=== PATIENT | male | born 2000 | race African-American/Black ===

== ENCOUNTER 2020-10-30 10:21 | Emergency (ER) | payer OTHER, SELFPAY ==
[2020-10-30 10:25] VITALS: BP 130/73; PULSE 62; RESP 18; TEMP 37.1; O2SAT 99
--- NOTE | 2020-10-30 10:57 | ED.DENTAL ---
HPI - Dental/Oral General Chief complaint: Dental/Oral Stated complaint: Dental/Oral Time Seen by Provider: 10/30/20 10:49 Source: patient and RN notes reviewed Mode of arrival: ambulatory Limitations: no limitations History of Present Illness HPI Narrative: Patient presents today complaining of left upper dental pain. States the tooth broke off a few years ago and reports pain has been present in the tooth area for the past 4 years, but the area has been swollen and more painful over the past 3 days. Denies fever, shortness of breath, difficulty swallowing. Currently rates his pain 8/10 describes the pain as throbbing. He has been taking Advil without relief. No recent antibiotic use. MD Complaint: tooth pain Related Data Allergies Allergy/AdvReac Type Severity Reaction Status Date / Time No Known Allergies Allergy Mild Verified 10/30/20 10:46 Review of Systems Review of Systems: Narrative: CONSTITUTIONAL: Denies body aches, fever, chills, or sweats. EYES: Denies visual changes, redness, or discharge. ENT: Denies rhinorrhea, congestion, sore throat, or otalgia.+ Tooth pain and facial swelling CARDIOVASCULAR: Denies chest pain, palpitations, or edema. RESPIRATORY: Denies cough or dyspnea. GASTROINTESTINAL: Denies abdominal pain, nausea, vomiting, or diarrhea. GENITOURINARY: Denies dysuria or hematuria. SKIN: Denies rash, itching, or wounds. MUSCULOSKELETAL: Denies back pain, joint pain, or myalgia. NEUROLOGIC: Denies headache, numbness, tingling, or weakness. PSYCH: Denies depression or anxiety. PMFSH Comments At time of signature, I have reviewed and agree with nursing past medical, surgical, social and family history unless otherwise noted. Please see nursing chart for further information. There is no relevant family history pertinent to the presenting complaint Exam Narrative: Exam Narrative: GENERAL: Well-appearing, well-nourished. Patient is tearful. HEAD: Normocephalic, atraumatic. EYES: EOMI. No redness or drainage. Conjunctivae normal. ENT: Mucous membranes pink and moist. Nares clear. No rhinorrhea. Throat normal. Uvula midline. #14 is broken off the gumline and brown in color. The surrounding gingiva is slightly erythematous. Left upper cheek is slightly edematous as well. Gumline is tender to palpation. No obvious periapical abscess. NECK: Normal AROM. Supple. No lymphadenopathy. CHEST: No respiratory distress. Clear to auscultation. HEART: Regular rate and rhythm. No murmur appreciated. Normal peripheral pulses. EXTREMITIES: Normal range of motion. No edema. SKIN: Warm, dry, no rash. Capillary refill normal. Normal skin turgor. NEURO: No focal deficits. Alert and oriented x3. Gait steady. PSYCH: Normal affect. No signs of depression or anxiety. Course Vital Signs Vital signs: Vital Signs Temperature 98.7 F 10/30/20 10:25 Pulse Rate 62 10/30/20 10:25 Respiratory Rate 18 10/30/20 10:25 Blood Pressure 130/73 10/30/20 10:25 Pulse Oximetry 99 10/30/20 10:25 Temperature 98.7 F 10/30/20 10:25 Pulse Rate 62 10/30/20 10:25 Respiratory Rate 18 10/30/20 10:25 Blood Pressure 130/73 10/30/20 10:25 Pulse Oximetry 99 10/30/20 10:25 Reviewed. Pt has been instructed to follow up with his PCP regarding his elevated blood pressure today. MDM - Dental/Oral Differential Diagnosis Differential diagnosis: Likely gingival abscess, dental caries, toothache, dental abscess and fracture of tooth Critical Care Time Critical Care Time Critical Care Time: No Discharge Plan Discharge Clinical Impression: Dental caries Fracture of tooth Qualifiers: Encounter type: initial encounter Fracture type: closed Qualified Code(s): S02.5XXA - Fracture of tooth (traumatic), initial encounter for closed fracture Patient Disposition: Home, Self-Care Condition: Stable Instructions: Antibiotic Form, Dental Abscess (ED) Additional Instructions: Please take the amoxicillin
== END 2020-10-30 11:10 | disposition home or self-care (01) ==
PROVIDERS: Emergency Provider Nurse Practitioner
DX: K02.9 Dental caries, unspecified (principal); S02.5XXA Fracture of tooth (traumatic), initial encounter for closed fracture; X58.XXXA Exposure to other specified factors, initial encounter
CPT/HCPCS: 99203; G0463

== ENCOUNTER 2024-09-18 17:03 | Emergency (ER) | payer OTHER, SELFPAY ==
--- NOTE | ~2024-09-18 | XR_ITS ---
XR pelvis 1-2V 09/18/2024 17:56 Indication: Status post fall on ice. Procedure: AP pelvis Comparison: No prior studies for comparison. Findings: Pelvic rings are intact. There are multiple lag screws in the pelvis. No acute fracture or traumatic malalignment. Impression: 1: No acute bone or joint abnormality. Reviewed, dictated and finalized at location A. ADMINISTRATOR Impression: 1: No acute bone or joint abnormality.
[2024-09-18 17:10] VITALS: BP 118/83; PULSE 98; RESP 20; TEMP 37.3; O2SAT 100
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
== END 2024-09-18 18:27 | disposition home or self-care (01) ==
PROVIDERS: Emergency Provider Registered Nurse
DX: M25.551 Pain in right hip (principal); W00.0XXA Fall on same level due to ice and snow, initial encounter; F12.90 Cannabis use, unspecified, uncomplicated
CPT/HCPCS: 72170; 99213; G0463

== ENCOUNTER 2024-12-28 18:11 | Emergency (ER) | payer OTHER, SELFPAY ==
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
--- OUTSIDE RECORDS SUMMARY | 2024-12-28 18:13 | XMS_ITS | Encounter Summary ---
Author Organization [facility] Address [address] [place] [address] Care Team Providers Care Health Practice Manager Name Role Phone Pily Goodson MD Primary Care Provider [phone] Encounter Details Date Type Department Care Team (Late st Contact Info) Description 01/20/[address] [address] BrothersMichaela RN Social History Tobacco Use Types Packs/Day Years Used Date Smoking Tobacco: Never Alcohol Use Standard Drinks/Week Comments Not Asked 0 (1 standard drink = 0.6 oz pur e alcohol) Sex and Gender Information Value Date Recorded Sex Assigned at Not on file Legal Sex Male 8:25 PM CDT Gender Identity Not on file Sexual Orientation Not on file documented as of this encounter Functional Status * Is person deaf or have serious hearing difficulty? Answer Date of Assessment Author No 01/17/2015 7:24 PM CDT Shannon Tran RN * Is person blind or have serious difficulty seeing? Answer Date of Assessment Author No 01/17/2015 7:24 PM CDT Shannon Tran RN * Does person have serious difficulty walking/climbing stairs? Answer Date of Assessment Author No 01/17/2015 7:24 PM CDT Shannon Tran RN * Does person have difficulty dressing/bathing? Answer Date of Assessment Author No 01/17/2015 7:24 PM CDT Shannon Tran RN * Does person have difficulty doing errands alone? Answer Date of Assessment Author No 01/17/2015 7:24 PM CDT Shannon Tran RN documented as of this encounter Mental Status * Does person have difficulty concentrating/remembering/making decisions? Answer Entry Date Author No 01/17/2015 7:24 PM CDT Shannon Tran RN documented in this encounter Plan of Treatment Not on file documented as of this encounter Visit Diagnoses Not on filedocumented in this encounter Care Teams Health Practice Manager Relationship Specialty Start Date End Date Pily Goodson MD [address] [place], [place] [phone] PCP - General Pediatrics 01/16/15 documented as of this encounter
--- OUTSIDE RECORDS SUMMARY | 2024-12-28 18:13 | XMS_ITS | Clinical Summary ---
Author Organization [facility] Address [address] [place] [address] Phone Care Team Providers Care Sheet Metal Duct Installer Helper Name Role Phone Provider, None Primary Care Provider Unavailabl e Allergies No known active allergies Medications No known medications Social History Tobacco Use Types Packs/Day Years Used Date Smoking Tobacco: Never Smokeless Tobacco: Never Tobacco Cessation:Counseling Given: Not Answered Alcohol Use Standard Drinks/Week Comments Never 0 (1 standard drink = 0.6 oz pur e alcohol) Sex and Gender Information Value Date Recorded Sex Assigned at Male 04/08/2024 1:52 PM CDT 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 Gender Identity Male 04/08/2024 1:52 PM CDT Sexual Orientation Not on file Last Filed Vital Signs Vital Sign Reading Time Taken Comments Blood Pressure 111/68 04/29/2024 3:00 PM CDT Pulse 68 04/29/2024 3:00 PM CDT Temperature 37 C (98.6 F) 04/29/2024 1:06 PM CDT Respiratory Rate 16 04/29/2024 3:00 PM CDT Oxygen Saturation 94% 04/29/2024 3:00 PM CDT Inhaled Oxygen Concentration - - Weight 82.1 kg (181 lb) 04/29/2024 1:06 PM CDT Height 182.9 cm (6') 04/29/2024 1:06 PM CDT Body Mass Index 24.55 04/29/2024 1:06 PM CDT Plan of Treatment Health Maintenance Due Date Last Done Comments Hepatitis C Virus (HCV) Screening 1999 Influenza Immunization (#1) 2024 SARS-COV-2 Immunization ( season) 2024 Respiratory Syncytial Virus (RSV) Immunization (Adult) (1 - 1-dose 75+ series) 2074 Hepatitis B Immunization Completed 001, 07/02/2000, 1999 Pneumococcal Immunization Combined Aged Out 09/26/2000, 07/02/2000 No longer eligibl e based on patient's age to complete this topic Meningococcal Immunization (ACWY) Aged Out 03/17/2011 No longer eligible based on patient's age to complete this topic Human Papillomavirus (HPV) Immunization Completed 04/15/2013, 06/18/2012, 03/29/2012 DTaP/Tdap/Td Immunization Discontinued 2023, 11/05/2009, 10/27/2003, Additional history exists TdaP Immunization Completed 01/22/2024, 11/05/2009 Rotavirus Immunization Aged Out No lo nger eligible based on patient's age to complete this topic Insurance MEDICAID [facility] Care Teams Sheet Metal Duct Installer Helper Relationship Specialty Start Date End Date Provider, None [place] PCP - General 04/29/24
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
--- OUTSIDE RECORDS SUMMARY | 2024-12-28 18:13 | XMS_ITS | Clinical Summary ---
Author Organization [address] lt Address [address] [place] [address] Care Team Providers Care Pizza Delivery Name Role Phone No, Physician Primary Care Provider [phone] Allergies No known active allergies Medications acetaminophen [...] near future. 01/30: [place] be NPO at [place] in anticipation of OMFS intervention for loose [...] (02/01/2024 6:19 AM CDT): Lives alone in [place], [place]. 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 01/23 Tx from Unit. 01/25: pending placement to IRF 01/29: insurance authorization for TRISL started Patient is medically stable for discharge, SW/KATY updated. Discharge pending insurance authorization 01/30: tentative plan for discharge 01/31 to trisl after OMFS 01/31: pending insurance authorization for TRISL Health Insurance Coverage: AmBetter Prescription Coverage: yes Pharmacy: [facility] #[id number] - [place] - [address] [place] [address] [place] [address] Anxiety/Agitation in the setting of major trauma [...] -- If you have 2 shaking spells [id number]-[id number] without returning to baseline in between, a [...] or concerns about wounds; patient can call [phone] or [phone] to schedule an appointment Liver laceration 01/22/2024 [...] leak - urology consult, okay to DC Oprter on 01/23 - WBAT BLE, PT/OT - sutures/char will be removed 3 weeks after surgical date 01/24: Ortho Trauma signed off, referrals sent per CM to [facility] Immunizations Immunization Administration Dates Next Due Tdap 01/22/2024 Surgical History Surgery Date Site/Laterality Comments OTHER SURGICAL HISTORY No pertinent surgical history Medical History Medical History Date Comments No pertinent past medical history Social History Tobacco Use Types Packs/Day Years [...] on file 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 Gender Identity Not on file Sexual Orientation Not on file Obstetrics History Last Filed Vital Signs Vital Sign Reading [...] 03/24/2024 12:59 PM CDT Plan of Treatment Health Maintenance Due Date Last Done Comments Depression Screening 1999 Hepatitis C Screening 1999 Regular Well Visit/Exam 18-64 2017 Influenza Vaccine (Season Ended) 2025 DTaP/Tdap/Td Vaccine (8 - Td or Tdap) 01/21/2034 01/22/2024, 11/05/2009, 10/27/2003, Additional history exists Hepatitis B Screening Completed 09/26/2000 , 07/02/2000, 1999 Pneumococcal vaccine <65 Completed 09/26/2000, 06/05 Varicella Vaccines Completed 11/05/2009, 07/02/2000 HPV Vaccines Completed 04/15/2013, 06/03, 03/29/2012 Medical Devices Implanted Type Area Supply Coordinator Device Identifier Shelf Expiration Date Model / Serial / Lot Synthes 13mm Washer Orthopedic Stainless Steel Nonsterile 6.5/7/7.3mm 219.99 - [id number] Implanted:Qty: 2 on 01/22/2024 by Alvaro Clement MD at [facility] Synthes I 219.99 / / Synthes 7.3mm 8.2mm 2.9mm 80mm Cannulated Self Tap Self Drill 209.680 - [id number] Implanted:Qty: 1 on 01/22/2024 by Alvaro Clement MD at [facility] Synthes I 209.680 / / Synthes 7.3mm 8.2mm 2.9mm 130mm Cannulated Self Tap Self Drill 209.730 - [id number] Implanted:Qty: 1 on 01/22/2024 by Alvaro Clement MD at [facility] Synthes I 209.730 / / Synthes 7.3mm 8.2mm 2.9mm 135mm 32mm Cannulated Self Tap Self Drill 209.935 - [id number] Implanted:Qty: 1 on 01/22/2024 by Alvaro Clement MD at [facility] Synthes I 209.935 / / Explanted Type Area Supply Coordinator Device Identifier Shelf Expiration Date Model / Serial / Lot Synthes 7.3mm 8.2mm 2.9mm 130mm 32mm Cannulated Self Tap Self Drill 209.930 - [id number] Explanted:Qty: 1 on 01/22/2024 at [facility] Synthes I 209.930 / / [place] [facility] [place] [facility] [place] Advance Directives For more information, please contact: [phone] * Full Code (Latest Code Status on File) Date Activated Date Inactivated Comments 01/22/2024 1:18 AM 02/01/2024 8:55 PM Care Teams Pizza Delivery Relationship Specialty Start Date End Date No, Physician PCP - General 12/16/20
--- OUTSIDE RECORDS SUMMARY | 2024-12-28 18:16 | XMS_ITS | CONTINUITY OF CARE DOCUMENT ---
Author Name iesha julian Address Unknown Organization [facility] Address [address] [place] [address] Phone [phone] Care Team Providers Care Global Marketing Operations Manager Name Role Phone Kel Moreno MD Unavailable DIANA JENKINS MD Unavailable [phone] INSURANCE PROVIDERS Payer name Policy type / Coverage type Edi red libertarian [place] HEALTHCARE AND FAMILY SERVICES Medicaid 1 [id number]
[2024-12-28 18:23] VITALS: BP 141/70; PULSE 70; RESP 16; TEMP 36.6; O2SAT 96
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
[2024-12-28 19:39] LABS: EDSTREPNEGPOS1 Negative (Negative)
[2024-12-28 19:43] LABS: EDCOVIDSCREEN Negative (Negative); EDINFLUASCREEN Negative (Negative); EDINFLUBSCREEN Negative (Negative)
== END 2024-12-28 20:16 | disposition left against medical advice (07) ==
PROVIDERS: Emergency Provider Nurse Practitioner
DX: R10.9 Unspecified abdominal pain (principal); R10.13 Epigastric pain; R19.7 Diarrhea, unspecified; Z20.822 Contact with and (suspected) exposure to COVID-19; F12.90 Cannabis use, unspecified, uncomplicated
CPT/HCPCS: 87081; 87426; 87804; 87880; 99213; G0463

== ENCOUNTER 2025-01-08 16:38 | Emergency (ER) | payer OTHER, SELFPAY ==
--- OUTSIDE RECORDS SUMMARY | 2025-01-08 16:40 | XMS_ITS | Clinical Summary ---
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
--- OUTSIDE RECORDS SUMMARY | 2025-01-08 16:40 | XMS_ITS | Clinical Summary ---
Author Organization [facility] Address [address] [place] [address] Care Team Providers Care Central Sterile Technician Name Role Phone Pily Goodson MD Primary Care Provider Source Comments [facility],non-owned Affiliates and Associated Physician Practices is amultiple site organization consisting of ambulatory clinics and hospital sitesin [place], [place], [place] and [place]. This disclosure is being madepursuant to the Care Everywhere program and may not contain all information available regarding this patient. Last updated 18.[facility] Allergies No known active allergies Medications * [...] age to complete this topic Care Teams Central Sterile Technician Relationship Specialty Start Date End Date Pily Goodson MD [address] [place], [place] [id number] PCP - General Pediatrics 01/16/15
--- OUTSIDE RECORDS SUMMARY | 2025-01-08 16:40 | XMS_ITS | Encounter Summary ---
Author Organization [facility] Address [address] [place] [address] Care Team Providers Care Twisting Department End Finder Name Role Phone Pily Goodson MD Primary Care Provider [phone] Encounter Details Date Type Department Care Team (Late st Contact Info) Description 01/20/[address] [address] BrothersMichaela RN Social History Tobacco Use Types [...] on filedocumented in this encounter Care Teams Twisting Department End Finder Relationship Specialty Start Date End Date Pily Goodson MD [address] [place], [place] [id number] PCP - General Pediatrics 01/16/15 documented as of this encounter
--- OUTSIDE RECORDS SUMMARY | 2025-01-08 16:40 | XMS_ITS | Referral Summary ---
Author Organization [address] l[address] Address [address] [place] [address] Care Team Providers Care Colorectal Surgeon Name Role Phone No, Physician Primary Care Provider [phone] Allergies No known active allergies Medications acetaminophen [...] near future. 01/30: will be NPO at [place] in anticipation of OMFS intervention for loose [...] (02/01/2024 6:19 AM CDT): Lives alone in [place], [place]. 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 01/23 Tx from Unit. 01/25: pending placement to IRF 01/29: insurance authorization for TRISL started Patient is medically stable for discharge, SW/KATY updated. Discharge pending insurance authorization 01/30: tentative plan for discharge 01/31 to trisl after OMFS 01/31: pending insurance authorization for TRISL Health Insurance Coverage: AmBetter Prescription Coverage: yes Pharmacy: [facility] #[id number] - [place] - [address] [place] [address] [place] [address] Anxiety/Agitation in the setting of major trauma [...] -- If you have 2 shaking spells [id number] without returning to baseline in between, a [...] or concerns about wounds; patient can call [phone] or [phone] to schedule an appointment Liver laceration 01/22/2024 [...] signed off, referrals sent per CM to [facility] Immunizations Immunization Administration Dates Next Due [...] on file 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 Gender Identity Not on file Sexual Orientation [...] on file Medical Devices Implanted Type Area Investigator Internal Affairs Device Identifier Shelf Expiration Date Model / Serial / Lot Synthes 13mm Washer Orthopedic Stainless Steel Nonsterile 6.5/7/7.3mm 219.99 - [id number] Implanted:Qty: 2 on 01/22/2024 by Alvaro Clement MD at [facility] Synthes I 219.99 / / Synthes 7.3mm 8.2mm 2.9mm 80mm Cannulated Self Tap Self Drill 209.680 - [id number] Implanted:Qty: 1 on 01/22/2024 by Alvaro Clement MD at [facility] Synthes I 209.680 / / Synthes 7.3mm 8.2mm 2.9mm 130mm Cannulated Self Tap Self Drill 209.730 - [id number] Implanted:Qty: 1 on 01/22/2024 by Alvaro Clement MD at [facility] Synthes I 209.730 / / Synthes 7.3mm 8.2mm 2.9mm 135mm 32mm Cannulated Self Tap Self Drill 209.935 - [id number] Implanted:Qty: 1 on 01/22/2024 by Alvaro Clement MD at [facility] Synthes I 209.935 / / Explanted Type Area Investigator Internal Affairs Device Identifier Shelf Expiration Date Model / Serial / Lot Synthes 7.3mm 8.2mm 2.9mm 130mm 32mm Cannulated Self Tap Self Drill 209.930 - [id number] Explanted:Qty: 1 on 01/22/2024 at [facility] Synthes I 209.930 / / Insurance [facility] [place] Member Subscriber Plan / Payer (Ef fective 2020-Present) Name:Ben Fuentes Relation to Subscriber:Self Name:Ben Fuentes Payer ID:[id number] (NAIC) Group ID:Not on file Type:MEDICAID RISK OTHER Address: [address] [place] [id number] [place] Advance Directives For more information, please contact: [phone] * Full Code (Latest Code Status on File) Date Activated Date Inactivated Comments 01/22/2024 1:18 AM 02/01/2024 8:55 PM Care Teams Colorectal Surgeon Relationship Specialty Start Date End Date No, Physician PCP - General 12/16/20
--- OUTSIDE RECORDS SUMMARY | 2025-01-08 16:41 | XMS_ITS | Clinical Summary ---
Author Organization [address] Address [address] [place] [address] Care Team Providers Care Construction Management Instructor Name Role Phone No, Physician Primary Care Provider [phone] Allergies No known active allergies Medications acetaminophen [...] Show on 02/15/24 Last Clinic Visit: 07/11/24 B[place] appears to be having persistent symptoms of [...] near future. 01/30: will be NPO at [place] in anticipation of OMFS intervention for loose [...] (02/01/2024 6:19 AM CDT): Lives alone in [place], [place]. 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 01/23 Tx from Unit. 01/25: pending placement to IRF 01/29: insurance authorization for TRISL started Patient is medically stable for discharge, SW/KATY updated. Discharge pending insurance authorization 01/30: tentative plan for discharge 01/31 to trisl after OMFS 01/31: pending insurance authorization for TRISL Health Insurance Coverage: AmBetter Prescription Coverage: yes Pharmacy: [facility] #[id number] - [place] - [address] [place] [address] [place] [address] Anxiety/Agitation in the setting of major trauma [...] -- If you have 2 shaking spells wmfi-fc-srjl without returning to baseline in between, a [...] or concerns about wounds; patient can call [phone] or [phone] to schedule an appointment Liver laceration 01/22/2024 [...] referrals sent per CM to [facility] Immunizations Immunization Administration Dates Next Due Tdap [...] on file 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 Gender Identity Not on file Sexual Orientation [...] 06/03, 03/29/2012 Medical Devices Implanted Type Area Zinc Furnace Charger Device Identifier Shelf Expiration Date Model / Serial / Lot Synthes 13mm Washer Orthopedic Stainless Steel Nonsterile 6.5/7/7.3mm 219.99 - [id number] Implanted:Qty: 2 on 01/22/2024 by Alvaro Clement MD at [facility] Synthes I 219.99 / / Synthes 7.3mm 8.2mm 2.9mm 80mm Cannulated Self Tap Self Drill 209.680 - [id number] Implanted:Qty: 1 on 01/22/2024 by Alvaro Clement MD at [facility] Synthes I 209.680 / / Synthes 7.3mm 8.2mm 2.9mm 130mm Cannulated Self Tap Self Drill 209.730 - [id number] Implanted:Qty: 1 on 01/22/2024 by Alvaro Clement MD at [facility] Synthes I 209.730 / / Synthes 7.3mm 8.2mm 2.9mm 135mm 32mm Cannulated Self Tap Self Drill 209.935 - [id number] Implanted:Qty: 1 on 01/22/2024 by Alvaro Clement MD at [facility] Synthes I 209.935 / / Explanted Type Area Zinc Furnace Charger Device Identifier Shelf Expiration Date Model / Serial / Lot Synthes 7.3mm 8.2mm 2.9mm 130mm 32mm Cannulated Self Tap Self Drill 209.930 - [id number] Explanted:Qty: 1 on 01/22/2024 at [facility] Synthes I 209.930 / / [place] [facility] [place] [facility] [place] Advance Directives For more information, please contact: [phone] * Full Code (Latest Code Status on File) Date Activated Date Inactivated Comments 01/22/2024 1:18 AM 02/01/2024 8:55 PM Care Teams Construction Management Instructor Relationship Specialty Start Date End Date No, Physician PCP - General 12/16/20
--- OUTSIDE RECORDS SUMMARY | 2025-01-08 16:41 | XMS_ITS | CONTINUITY OF CARE DOCUMENT ---
Author Name iesha julian Address Unknown Organization [facility] Address [address] [place] [address] Phone [phone] Care Team Providers Care Prototype Carpenter Name Role Phone Kel Moreno MD Unavailable DIANA JENKINS MD Unavailable INSURANCE PROVIDERS Payer name Policy type / Coverage type Edi red green party [place] HEALTHCARE AND FAMILY SERVICES Medicaid 1 [id number]
[2025-01-08 16:42] VITALS: BP 146/80; PULSE 90; RESP 20; TEMP 37.1; O2SAT 100
--- OUTSIDE RECORDS SUMMARY | 2025-01-08 16:42 | XMS_ITS | CONTINUITY OF CARE DOCUMENT ---
Author Name iesha julian Address Unknown Organization [facility] Address [address] [place] [address] Phone [phone] Care Team Providers Care Key Account Representative Name Role Phone Kel Moreno MD Unavailable DIANA JENKINS MD Unavailable INSURANCE PROVIDERS Payer name Policy type / Coverage type Edi red democrat [place] [facility]ALTHCARE AND FAMILY SERVICES Medicaid 1 [id number]
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
[2025-01-08 17:19] LABS: EDSTREPNEGPOS1 Negative (Negative)
== END 2025-01-08 17:25 | disposition home or self-care (01) ==
PROVIDERS: Emergency Provider Registered Nurse
DX: J06.9 Acute upper respiratory infection, unspecified (principal); J02.9 Acute pharyngitis, unspecified
CPT/HCPCS: 87081; 87880; 99213; G0463

== ENCOUNTER 2025-01-11 11:17 | Emergency (ER) | payer OTHER, SELFPAY ==
--- OUTSIDE RECORDS SUMMARY | 2025-01-11 11:29 | XMS_ITS | CONTINUITY OF CARE DOCUMENT ---
Author Name iesha julian Address Unknown Organization [facility] Address [address] [place] [address] Phone [phone] Care Team Providers Care Blankbook Forwarder Name Role Phone Kel Moreno MD Unavailable [phone] DIANA JENKINS MD Unavailable [phone] INSURANCE PROVIDERS Payer name Policy type / Coverage type Edi red constitution party ID HEALTHCARE AND FAMILY SERVICES Medicaid 1 [id number]
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
--- OUTSIDE RECORDS SUMMARY | 2025-01-11 11:29 | XMS_ITS | Clinical Summary ---
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
--- OUTSIDE RECORDS SUMMARY | 2025-01-11 11:29 | XMS_ITS | Encounter Summary ---
Author Organization [facility] Address [address] [place] [address] Care Team Providers Care Soccer Player Name Role Phone Pily Goodson MD Primary Care Provider [phone] Encounter Details Date Type Department Care Team (Late st Contact Info) Description 01/20/[address] [address] BrothersMichaela RN Social History Tobacco Use Types [...] on filedocumented in this encounter Care Teams Soccer Player Relationship Specialty Start Date End Date Pily Goodson MD [address] [place], [place] [phone] PCP - General Pediatrics 01/16/15 documented as of this encounter
--- OUTSIDE RECORDS SUMMARY | 2025-01-11 11:29 | XMS_ITS | Clinical Summary ---
Author Organization [facility] Address [address] [place] [address] Care Team Providers Care Loader Machine Name Role Phone Pily Goodson MD Primary Care Provider Source Comments [facility],non-owned Affiliates and Associated Physician Practices is amultiple site organization consisting of ambulatory clinics and hospital sitesin [place], [place], [place] and [place]. This disclosure is being madepursuant to the Care Everywhere program and may not contain all information available regarding this patient. Last updated 18.[facility] Allergies No known active allergies Medications * [...] age to complete this topic Care Teams Loader Machine Relationship Specialty Start Date End Date Pily Goodson MD [address] [place], [place] [phone] PCP - General Pediatrics 01/16/15
--- OUTSIDE RECORDS SUMMARY | 2025-01-11 11:31 | XMS_ITS | CONTINUITY OF CARE DOCUMENT ---
Author Name iesha julian Address Unknown Organization [facility] Address [address] [place] [address] Phone [phone] Care Team Providers Care Bench Assembler Name Role Phone Kel Moreno MD Unavailable [phone] DIANA JENKINS MD Unavailable [phone] INSURANCE PROVIDERS Payer name Policy type / Coverage type Edi red democrat ID HEALTHCARE AND FAMILY SERVICES Medicaid 1 [id number]
[2025-01-11 11:32] VITALS: BP 137/75; PULSE 75; RESP 16; TEMP 36.9; O2SAT 99
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
== END 2025-01-11 12:03 | disposition home or self-care (01) ==
PROVIDERS: Emergency Provider Nurse Practitioner
DX: J06.9 Acute upper respiratory infection, unspecified (principal); F12.90 Cannabis use, unspecified, uncomplicated
CPT/HCPCS: 99213; G0463

== ENCOUNTER 2025-01-19 15:41 | Emergency (ER) | payer OTHER, SELFPAY ==
--- OUTSIDE RECORDS SUMMARY | 2025-01-19 15:44 | XMS_ITS | Encounter Summary ---
Author Organization [facility] Address [address] [place] [address] Care Team Providers Care Telecommunication Engineer Name Role Phone Pily Goodson MD Primary Care Provider [phone] Encounter Details Date Type Department Care Team (Late st Contact Info) Description 01/20/[address] [address] BrothersMichaela RN Social History Tobacco Use Types [...] on filedocumented in this encounter Care Teams Telecommunication Engineer Relationship Specialty Start Date End Date Pily Goodson MD [address] [place], [place] [phone] PCP - General Pediatrics 01/16/15 documented as of this encounter
--- OUTSIDE RECORDS SUMMARY | 2025-01-19 15:44 | XMS_ITS | Clinical Summary ---
Author Organization [address] lt Address [address] [place] [address] Care Team Providers Care Exhaust And Muffler Repairer Name Role Phone No, Physician Primary Care Provider [phone] Allergies No known active allergies Medications acetaminophen [...] near future. 01/30: will be NPO at [place] in anticipation of OMFS intervention for loose [...] (02/01/2024 6:19 AM CDT): Lives alone in [place], [place]. 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 01/23 Tx from Unit. 01/25: pending placement to IRF 01/29: insurance authorization for TRISL started Patient is medically stable for discharge, SW/KATY updated. Discharge pending insurance authorization 01/30: tentative plan for discharge 01/31 to trisl after OMFS 01/31: pending insurance authorization for TRISL Health Insurance Coverage: AmBetter Prescription Coverage: yes Pharmacy: [facility] #[id number] - [place] - [address] [place] [address] [place] [phone] Anxiety/Agitation in the setting of major trauma [...] -- If you have 2 shaking spells isie-we-rdsh without returning to baseline in between, a [...] or concerns about wounds; patient can call [phone] or [phone] to schedule an appointment Liver laceration 01/22/2024 [...] signed off, referrals sent per CM to [facility] Immunizations Immunization Administration Dates Next Due [...] on file 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3mm 8.2mm 2.9mm 130mm Cannulated Self Tap Self Drill 209.730 - [id number] Implanted:Qty: 1 on 01/22/2024 by Alvaro Clement MD at [facility] Synthes I 209.730 / / Synthes 7.3mm 8.2mm 2.9mm 135mm 32mm Cannulated Self Tap Self Drill 209.935 - [id number] Implanted:Qty: 1 on 01/22/2024 by Alvaro Clement MD at [facility] Synthes I 209.935 / / Explanted Type Area Accounting Software Specialist Device Identifier Shelf Expiration Date Model / Serial / Lot Synthes 7.3mm 8.2mm 2.9mm 130mm 32mm Cannulated Self Tap Self Drill 209.930 - [id number] Explanted:Qty: 1 on 01/22/2024 at [facility] Synthes I 209.930 / / Insurance [place] A[place] BETTER [facility] [place] [facility] [place] Advance Directives For more information, please contact: [phone] * Full Code (Latest Code Status on File) Date Activated Date Inactivated Comments 01/22/2024 1:18 AM 02/01/2024 8:55 PM Care Teams Exhaust And Muffler Repairer Relationship Specialty Start Date End Date No, Physician PCP - General 12/16/20
--- OUTSIDE RECORDS SUMMARY | 2025-01-19 15:44 | XMS_ITS | Clinical Summary ---
Author Organization [facility] Address [address] [place] [address] Care Team Providers Care Human Factors Ergonomist Name Role Phone Pily Goodson MD Primary Care Provider Source Comments [facility],non-owned Affiliates and Associated Physician Practices is amultiple site organization consisting of ambulatory clinics and hospital sitesin [place], [place], [place] and [place]. This disclosure is being madepursuant to the Care Everywhere program and may not contain all information available regarding this patient. Last updated 18.[facility] Allergies No known active allergies Medications * [...] age to complete this topic Care Teams Human Factors Ergonomist Relationship Specialty Start Date End Date Pily Goodson MD [address] [place], [place] [phone] PCP - General Pediatrics 01/16/15
--- OUTSIDE RECORDS SUMMARY | 2025-01-19 15:44 | XMS_ITS | Clinical Summary ---
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
--- OUTSIDE RECORDS SUMMARY | 2025-01-19 15:44 | XMS_ITS | CONTINUITY OF CARE DOCUMENT ---
Author Name iesha julian Address Unknown Organization [facility] Address [address] [place] [address] Phone [phone] Care Team Providers Care Rn Building Name Role Phone Kle Moreno MD Unavailable [phone] DIANA JENKINS MD Unavailable INSURANCE PROVIDERS Payer name Policy type / Coverage type Edi red republican ID HEALTHCARE AND FAMILY SERVICES Medicaid 1 [id number]
--- OUTSIDE RECORDS SUMMARY | 2025-01-19 15:44 | XMS_ITS | Referral Summary ---
Author Organization [address] l[address] Address [address] [place] [address] Care Team Providers Care Senior Network Security Architect Name Role Phone No, Physician Primary Care Provider [phone] Allergies No known active allergies Medications acetaminophen [...] near future. 01/30: [place] at [place] in anticipation of OMFS intervention for loose [...] (02/01/2024 6:19 AM CDT): Lives alone in [place], [place]. 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 01/23 Tx from Unit. 01/25: pending placement to IRF 01/29: insurance authorization for TRISL started Patient is medically stable for discharge, SW/KTAY updated. Discharge pending insurance authorization 01/30: tentative plan for discharge 01/31 to trisl after OMFS 01/31: pending insurance authorization for TRISL Health Insurance Coverage: AmBetter Prescription Coverage: yes Pharmacy: [facility] #[id number] - [place] - [address] [place] [address] [place] [id number] Anxiety/Agitation in the setting of major trauma [...] -- If you have 2 shaking spells ltnc-ke-vgyk without returning to baseline in between, a [...] or concerns about wounds; patient can call [phone] or [phone] to schedule an appointment Liver laceration 01/22/2024 [...] signed off, referrals sent per CM to [facility] Immunizations Immunization Administration Dates Next Due [...] on file 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 Synthes I 219.99 / / Synthes 7.3mm 8.2mm 2.9mm 80mm Cannulated Self Tap Self Drill 209.680 - [id number] Implanted:Qty: 1 on 01/22/2024 by Alvaro Clement MD at [facility] Synthes I 209.680 / / Synthes 7.3mm 8.2mm 2.9mm 130mm Cannulated Self Tap Self Drill 209.730 - [id number] Implanted:Qty: 1 on 01/22/2024 by Alvaro Clement MD at [facility] Synthes I 209.730 / / Synthes 7.3mm 8.2mm 2.9mm 135mm 32mm Cannulated Self Tap Self Drill 209.935 - [id number] Implanted:Qty: 1 on 01/22/2024 by Alvaro Clement MD at [facility] Synthes I 209.935 / / Explanted Type Area Shoe Worker Device Identifier Shelf Expiration Date Model / Serial / Lot Synthes 7.3mm 8.2mm 2.9mm 130mm 32mm Cannulated Self Tap Self Drill 209.930 - [id number] Explanted:Qty: 1 on 01/22/2024 at [facility] Synthes I 209.930 / / Insurance [facility] [place] Subscriber Plan / Payer (Ef fective 2020-Present) Name:Ben Fuentes Relation to Subscriber:Self Name:Ben Fuentes Payer ID:[id number] (NAIC) Group ID:Not on file Type:MEDICAID RISK OTHER Address: [address] [place] [id number] [place] Advance Directives For more information, please contact: [phone] * Full Code (Latest Code Status on File) Date Activated Date Inactivated Comments 01/22/2024 1:18 AM 02/01/2024 8:55 PM Care Teams Senior Network Security Architect Relationship Specialty Start Date End Date No, Physician PCP - General 12/16/20
[2025-01-19 15:47] VITALS: BP 153/75; PULSE 90; RESP 20; TEMP 36.7; O2SAT 98
--- OUTSIDE RECORDS SUMMARY | 2025-01-19 15:47 | XMS_ITS | CONTINUITY OF CARE DOCUMENT ---
Author Name iesha julian Address Unknown Organization [facility] Address [address] [place] [address] Phone [phone] Care Team Providers Care Stock Taker Name Role Phone Kel Moreno MD Unavailable DIANA JENKINS MD Unavailable INSURANCE PROVIDERS Payer name Policy type / Coverage type Edi red green party ID HEALTHCARE AND FAMILY SERVICES Medicaid 1 [id number]
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
== END 2025-01-19 16:16 | disposition home or self-care (01) ==
PROVIDERS: Emergency Provider Nurse Practitioner; PCP Family Medicine
DX: M25.551 Pain in right hip (principal)
CPT/HCPCS: 99213; G0463

== ENCOUNTER 2025-03-02 14:21 | Emergency (ER) | payer OTHER, SELFPAY ==
[2025-03-02 14:26] VITALS: BP 134/75; PULSE 79; RESP 20; TEMP 36.6; O2SAT 100
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
--- OUTSIDE RECORDS SUMMARY | 2025-03-02 14:34 | XMS_ITS | Clinical Summary ---
Author Organization [facility] Address [address] [place] [address] Care Team Providers Care Track Announcer Name Role Phone Pily Goodson MD Primary Care Provider Source Comments [facility],non-owned Affiliates and Associated Physician Practices is amultiple site organization consisting of ambulatory clinics and hospital sitesin [place], [place], [place] and [place]. This disclosure is being madepursuant to the Care Everywhere program and may not contain all information available regarding this patient. Last updated 18.[facility] Allergies No known active allergies Medications * [...] 9:07 AM CDT Height 173.1 cm (5' 8.15) 03/01/2015 9:07 AM CD T Body Mass [...] age to complete this topic Care Teams Track Announcer Relationship Specialty Start Date End Date Pily Goodson MD [address] [place], [place] [phone] PCP - General Pediatrics 01/16/15
--- OUTSIDE RECORDS SUMMARY | 2025-03-02 14:34 | XMS_ITS | Encounter Summary ---
Author Organization [facility] Address [address] [place] [address] Care Team Providers Care Clay Hoister Name Role Phone Pily Goodson MD Primary Care Provider [phone] Encounter Details Date Type Department Care Team (Late st Contact Info) Description 01/20/[address] [address] BrothersMichaela RN Social History Tobacco Use Types [...] on filedocumented in this encounter Care Teams Clay Hoister Relationship Specialty Start Date End Date Pily Goodson MD [address] [place], [place] [phone] PCP - General Pediatrics 01/16/15 documented as of this encounter
--- OUTSIDE RECORDS SUMMARY | 2025-03-02 14:34 | XMS_ITS | Clinical Summary ---
Author Organization [facility] Address [address] [place] [address] Phone Care Team Providers Care Client Success Specialist Name Role Phone Abdoulaye Donahue MD Primary Care Provider Allergies No known active allergies Medications cephALEXin (KEFLEX) 500 MG Capsule Take 1 Capsule by mouth 4 times daily for 10 days. 40 Capsule 02/22/2025 Active Encounters Date Type Department Care Team Description 02/22/2025 6:06 PM CDT - 02/22/2025 8:42 PM CDT Emergency [facility] [address] [place] [address] Finger laceration Discharge Disposition: Discharged to home or Selfcare 02/22/2025 Travel from Last 3 Months Social History Tobacco Use Types Packs/Day Years Used Date Smoking Tobacco: Never Smokeless Tobacco: Never Tobacco Cessation:Counseling Given: Not Answered Alcohol Use Standard Drinks/Week Comments Never 0 (1 standard drink = 0.6 oz pur e alcohol) Sex and Gender Information Value Date Recorded Sex Assigned at Male 04/08/2024 1:52 PM CDT 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 Gender Identity Male 04/08/2024 1:52 PM CDT Sexual Orientation Not on file Last Filed Vital Signs Vital Sign Reading Time Taken Comments Blood Pressure 120/81 02/22/2025 8:30 PM CDT Pulse 90 02/22/2025 8:30 PM CDT Temperature 36.4 C (97.5 F) 02/22/2025 8:30 PM CDT Respiratory Rate 14 02/22/2025 8:30 PM CDT Oxygen Saturation 98% 02/22/2025 8:30 PM CDT Inhaled Oxygen Concentration - - Weight 77.1 kg (170 lb) 02/22/2025 5:28 PM CDT Height 182.9 cm (6') 02/22/2025 5:28 PM CDT Body Mass Index 23.06 02/22/2025 5:28 PM CDT Plan of Treatment Health Maintenance Due Date Last Done Comments Hepatitis C Virus (HCV) Screening 1999 SARS-COV-2 Immunization (2023- season) 2024 Influenza Immunization (Season Ended) 2025 Respiratory Syncytial Virus (RSV) Immunization (Adult) (1 [...] on patient's age to complete this topic Procedures Procedure Name Priority Date/Time Associated Diagnosis Comments XR HAND 2 VIEWS RIGHT STAT 02/22/2025 5:50 PM CDT from Last 3 Months Results * XR HAND 2 VIEWS RIGHT (02/22/2025 5:50 PM CDT) Anatomical Region Laterality Modality UPPER EXTREMITY, hand Right Digital Ra diography 02/22/2025 6:16 PM CDT Impressions 02/22/2025 6:18 PM CDT IMPRESSION: No acute osseous abnormality. Narrative 02/22/2025 6:18 PM CDT EXAM DESCRIPTION: XR HAND 2 VIEWS RIGHT REASON FOR STUDY: c/o finger injury. Reports he was working on his girlfriends car last night and his finger got stuck in a belt and filleted a piece of skin on his knuckle. TECHNIQUE: 2 radiographic view(s) of the right hand . COMPARISON: None available. FINDINGS: BONES/JOINTS: There is normal osseous alignment. No acute fracture or dislocation. Joint spaces are maintained. SOFT TISSUES: No focal soft tissue abnormality visualized. No radiopaque foreign body seen. THIS IS AN ELECTRONICALLY VERIFIED FINAL REPORT 02/22/2025 6:16 PM - Electronically signed by Salvador Baumann M.D. MF: DEXTER Report ID: [id number] Reading Location: [id number] Procedure Note Salvador Baumann, DO - 02/22/2025 EXAM DESCRIPTION: XR HAND 2 VIEWS RIGHT REASON FOR STUDY: c/o finger injury. Reports he was working on his girlfriends car last night and his finger got stuck in a belt and filleted a piece of skin on his knuckle. TECHNIQUE: 2 radiographic view(s) of the right hand . COMPARISON: None available. FINDINGS: BONES/JOINTS: There is normal osseous alignment. No acute fracture or dislocation. Joint spaces are maintained. SOFT TISSUES: No focal soft tissue abnormality visualized. No radiopaque foreign body seen. THIS IS AN ELECTRONICALLY VERIFIED FINAL REPORT 02/22/2025 6:16 PM - Electronically signed by Salvador Baumann M.D. MF: DEXTER Report ID: [id number] Reading Location: [id number] IMPRESSION: No acute osseous abnormality. Lou CAIN DIAGNOSTIC ORDERABLES Fin al Result from Last 3 Months Insurance MEDICAID AETNA [facility] Care Teams Client Success Specialist Relationship Specialty Start Date End Date Abdoulaye Donahue MD [address] [place] [address] PCP - General Pediatrics 02/22/25
--- OUTSIDE RECORDS SUMMARY | 2025-03-02 14:34 | XMS_ITS | Referral Summary ---
Author Organization [address] Address [address] [place] [address] Care Team Providers Care Firestop/Containment Worker Name Role Phone No, Physician Primary Care Provider [phone] Allergies No known active allergies Medications acetaminophen [...] mouth 3 (three) times a day 4 Active Additional Information Patient not taking.Reported [...] near future. 01/30: will be NPO at OR in anticipation of OMFS intervention for loose [...] (02/01/2024 6:19 AM CDT): Lives alone in [place], [place]. 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 01/23 Tx from Unit. 01/25: pending placement to IRF 01/29: insurance authorization for TRISL started Patient is medically stable for discharge, SW/KATY updated. Discharge pending insurance authorization 01/30: tentative plan for discharge 01/31 to trisl after OMFS 01/31: pending insurance authorization for TRISL Health Insurance Coverage: AmBetter Prescription Coverage: yes Pharmacy: [id number] - [place] - [address] [place] [address] [place] [address] Anxiety/Agitation in the setting of major trauma [...] -- If you have 2 shaking spells [id number] without returning to baseline in between, a [...] or concerns about wounds; patient can call [phone] or [phone] to schedule an appointment Liver laceration 01/22/2024 [...] to [place] Cristina effect 01/23: CT removed 0900. 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 Gender Identity Not on file Sexual Orientation [...] on file Medical Devices Implanted Type Area Psychotherapist Counselor Device Identifier Shelf Expiration Date Model / Serial / Lot Synthes 13mm Washer Orthopedic Stainless Steel Nonsterile 6.5/7/7.3mm 219.99 - [id number] Implanted:Qty: 2 on 01/22/2024 by Alvaro Clement MD at [facility] Synthes I 219.99 / / Synthes 7.3mm 8.2mm 2.9mm 80mm Cannulated Self Tap Self Drill 209.680 - [id number] Implanted:Qty: 1 on 01/22/2024 by Alvaro Clement MD at [facility] Synthes I 209.680 / / Synthes 7.3mm 8.2mm 2.9mm 130mm Cannulated Self Tap Self Drill 209.730 - [id number] Implanted:Qty: 1 on 01/22/2024 by Alvaro Clement MD at [facility] Synthes I 209.730 / / Synthes 7.3mm 8.2mm 2.9mm 135mm 32mm Cannulated Self Tap Self Drill 209.935 - [id number] Implanted:Qty: 1 on 01/22/2024 by Alvaro Clement MD at [facility] Synthes I 209.935 / / Explanted Type Area Psychotherapist Counselor Device Identifier Shelf Expiration Date Model / Serial / Lot Synthes 7.3mm 8.2mm 2.9mm 130mm 32mm Cannulated Self Tap Self Drill 209.930 - [id number] Explanted:Qty: 1 on 01/22/2024 at [facility] Synthes I 209.930 / / Insurance [facility] [place] Advance Directives For more information, please contact: [phone] * Full Code (Latest Code Status on File) Date Activated Date Inactivated Comments 01/22/2024 1:18 AM 02/01/2024 8:55 PM Care Teams Firestop/Containment Worker Relationship Specialty Start Date End Date No, Physician PCP - General 12/16/20
--- OUTSIDE RECORDS SUMMARY | 2025-03-02 14:34 | XMS_ITS | Clinical Summary ---
Author Organization [address] Address [address] [place] [address] Care Team Providers Care Tour Leader Name Role Phone No, Physician Primary Care Provider [phone] Allergies No known active allergies Medications acetaminophen [...] near future. 01/30: [place] NPO at [place] in anticipation of OMFS intervention for loose [...] (02/01/2024 6:19 AM CDT): Lives alone in [place], [place]. 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 01/23 Tx from Unit. 01/25: pending placement to IRF 01/29: insurance authorization for TRISL started Patient is medically stable for discharge, SW/KATY updated. Discharge pending insurance authorization 01/30: tentative plan for discharge 01/31 to [facility] after OMFS 01/31: pending insurance authorization for TRISL Health Insurance Coverage: AmBetter Prescription Coverage: yes Pharmacy: [facility] #[id number] - [place] - [address] [place] [address] [place] [address] Anxiety/Agitation in the setting of major trauma [...] -- If you have 2 shaking spells [id number] without returning to baseline in between, a [...] or concerns about wounds; patient can call [phone] or [phone] to schedule an appointment Liver laceration 01/22/2024 [...] signed off, referrals sent per CM to [facility] Immunizations Immunization Administration Dates Next Due [...] on file 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9mm 130mm Cannulated Self Tap Self Drill 209.730 - [id number] Implanted:Qty: 1 on 01/22/2024 by Alvaro Clement MD at [facility] Synthes I 209.730 / / Synthes 7.3mm 8.2mm 2.9mm 135mm 32mm Cannulated Self Tap Self Drill 209.935 - [id number] Implanted:Qty: 1 on 01/22/2024 by Alvaro Clement MD at [facility] Synthes I 209.935 / / Explanted Type Area Pillowcase Maker Device Identifier Shelf Expiration Date Model / Serial / Lot Synthes 7.3mm 8.2mm 2.9mm 130mm 32mm Cannulated Self Tap Self Drill 209.930 - [id number] Explanted:Qty: 1 on 01/22/2024 at [facility] Synthes I 209.930 / / Insurance [place] AET[place] [facility] AETNA BETTER [facility] Advance Directives For more information, please contact: [phone] * Full Code (Latest Code Status on File) Date Activated Date Inactivated Comments 01/22/2024 1:18 AM 02/01/2024 8:55 PM Care Teams Tour Leader Relationship Specialty Start Date End Date No, Physician PCP - General 12/16/20
== END 2025-03-02 14:54 | disposition home or self-care (01) ==
PROVIDERS: Emergency Provider Nurse Practitioner
DX: K04.7 Periapical abscess without sinus (principal)
CPT/HCPCS: 64400; 99213; G0463